=== PATIENT | female | born 1965 | race African-American/Black ===

== ENCOUNTER 2021-12-02 14:49 | Outpatient (REF) | payer SELFPAY ==
--- NOTE | 2021-12-03 09:39 | MHC.AU.HFU ---
Hearing Instrument Follow-Up- Binaural Date of Visit: 12/02/21 Right Ear: Child Care Sitter: Phonak Model: FastPayeo P70-R Serial Number: [id number] Repair Warranty: 02/06/2025 Loss and Damage Warranty: 02/06/2025 Battery Size: Rechargeable Type of Mold: cShell #[id number] Warranty 05/09/2022 Type of Wax Guard: CeruStop Left Ear: Child Care Sitter: Phonak Model: Audeo P70-R Serial Number: [id number] Repair Warranty: 02/06/2025 Loss and Damage Warranty: 02/06/2025 Battery Size: Rechargeable Type of Mold: cShell #[id number] Warranty 05/09/2022 Type of Wax Guard: CeruStop Follow-Up Summary: Patient reports that the left hearing aid has been producing feedback. Others at work have noticed the feedback as well. The left cShell is larger than the right side and sticks out more. A new impression was taken of the left ear and will be sent to [employer] along with the cShell. The left hearing aid will be kept in the repair drawer until the remade cShell has returned. Recommendations: Patient will be contacted when materials have arrived. Diagnosis Code(s): Primary Diagnosis: H90.6 Mixed Hearing Loss, Bilateral Signature: Provider: Odalis Lozano, [facility]
== END 2021-12-02 14:50 | disposition home or self-care (01) ==
LOC: HO.HAP 14:49
PROVIDERS: Visit Provider Internal Medicine
DX: Z13.89 Encounter for screening for other disorder (principal)

== ENCOUNTER 2021-12-23 14:46 | Outpatient (REF) | payer SELFPAY | END 2021-12-23 14:47 | disposition home or self-care (01) | LOC: HO.HAP 14:46 | PROVIDERS: Visit Provider Internal Medicine | DX: Z13.89 Encounter for screening for other disorder (principal) ==

== ENCOUNTER 2022-04-05 10:38 | Outpatient (REF) | payer SELFPAY | END 2022-04-05 10:39 | disposition home or self-care (01) | LOC: HO.HAP 10:38 | PROVIDERS: Visit Provider Internal Medicine | DX: Z13.89 Encounter for screening for other disorder (principal) ==

== ENCOUNTER 2022-04-15 08:54 | Outpatient (REF) | payer SELFPAY | END 2022-04-15 08:55 | disposition home or self-care (01) | LOC: HO.HAP 08:54 | PROVIDERS: Visit Provider Internal Medicine | DX: Z13.89 Encounter for screening for other disorder (principal) ==

== ENCOUNTER 2022-09-19 16:13 | Outpatient (REF) | payer SELFPAY | END 2022-09-19 16:14 | disposition home or self-care (01) | LOC: HO.HAP 16:13 | PROVIDERS: Visit Provider Internal Medicine | DX: Z13.89 Encounter for screening for other disorder (principal) ==

== ENCOUNTER 2022-10-14 15:25 | Outpatient (REF) | payer SELFPAY | END 2022-10-14 15:26 | disposition home or self-care (01) | LOC: HO.HAP 15:25 | PROVIDERS: Visit Provider Internal Medicine | DX: Z13.89 Encounter for screening for other disorder (principal) ==

== ENCOUNTER 2023-08-01 15:06 | Outpatient (REF) | payer SELFPAY ==
--- NOTE | 2023-08-01 16:40 | MHC.AU.HA3 ---
Hearing Instrument Follow-Up- Binaural Date of Visit: 08/01/23 Right Ear: Alfred, Model, Color, Serial Number: Marquez Olson P70-R, #[id number] It Corporate Recruiter Repair Warranty: 02/06/2025 It Corporate Rec[employer]iter Loss and Damage Warranty: 02/06/2025 [facility] Service Plan: Battery Size: Rechargeable Switchboard Operator Receptionist/Slim Tube: 0M Earmold/Dome/CShell/SlimTip:cShell #[id number] Warranty 05/09/2022 Type of Wax Guard: CeruStop Dispensed By: [facility] Date of Fittin11/18/2021 Left Ear: Alfred, Model, Color, Serial Number: Marquez Olson P70-R, #[id number] It Corporate Recruiter Repair Warranty: 02/06/2025 It Corporate Recruiter Loss and Damage Warranty: 02/06/2025 [facility] Service Plan: Battery Size: Rechargeable Switchboard Operator Receptionist/Slim Tube: 0P Earmold/Dome/CShell/SlimTip: cShell #[id number] Warranty 05/09/2022 Type of Wax Guard: CeruStop Dispensed By: [facility] Date of Fittin11/18/2021 Follow-Up Summary: Pt reports hearing aids have been disconnected from phone since her niece accidentally deleted the lloyd. Deleted BT pairings and reconnected aids to phone and lloyd. Firmware update completed as well. Cleaned and checked aids and molds, listening check positive. Recommendations: Recommendations: Hearing instrument follow-up or maintenance as needed. Diagnosis Code(s): Primary Diagnosis: H90.6 Mixed Hearing Loss, Bilateral Signature: Provider: Umair Dill, [facility]
== END 2023-08-01 15:07 | disposition home or self-care (01) ==
LOC: HO.HAP 15:06
PROVIDERS: Visit Provider Internal Medicine
DX: Z46.1 Encounter for fitting and adjustment of hearing aid (principal); H90.6 Mixed conductive and sensorineural hearing loss, bilateral
CPT/HCPCS: 92593

== ENCOUNTER 2023-11-01 15:54 | Outpatient (REF) | payer SELFPAY | END 2023-11-01 15:55 | disposition home or self-care (01) | LOC: HO.HAP 15:54 | PROVIDERS: PCP Internal Medicine; Visit Provider Internal Medicine | DX: Z46.1 Encounter for fitting and adjustment of hearing aid (principal); H90.3 Sensorineural hearing loss, bilateral | CPT/HCPCS: V5264; V5267 ==

== ENCOUNTER 2023-12-15 08:08 | Outpatient (REF) | payer SELFPAY | END 2023-12-15 08:09 | disposition home or self-care (01) | LOC: HO.HAP 08:08 | PROVIDERS: Visit Provider Internal Medicine | DX: Z13.89 Encounter for screening for other disorder (principal) ==

== ENCOUNTER 2023-12-29 08:01 | Outpatient (REF) | payer SELFPAY ==
--- NOTE | 2024-01-01 10:37 | MHC.AU.HA3 ---
Hearing Instrument Follow-Up- Binaural Date of Visit: 12/29/23 Right Ear: Make, Model, Color, Serial Number: Marquez Mondragono P70-R SN: [id number] Color: Black Continuous Pickling Line Pickler Repair Warranty: 02/06/2025 Continuous Pickling Line Pickler Loss and Damage Warranty: 02/06/2025 [facility] Service Plan: 11/18/2022 Battery Size: Rechargeable Veterinary Assistant Technician/Slim Tube: 0M Earmold/Dome/CShell/SlimTip:cShell SN: [id number] Shilpa: 05/09/2022 Type of Wax Guard: CeruStop Dispensed By: [facility] Date of Fittin11/18/2021 Left Ear: Make, Model, Color, Serial Number: Marquez Mondragono P70-R SN: [id number] Color: Black Continuous Pickling Line Pickler Repair Warranty: 02/06/2025 Continuous Pickling Line Pickler Loss and Damage Warranty: 02/06/2025 [facility] Service Plan: 11/18/2022 Battery Size: Rechargeable Veterinary Assistant Technician/Slim Tube: 0P Earmold/Dome/CShell/SlimTip: cShell SN: [id number] Shilpa: 04/16/2024 Old cShell (broken wax guard gasket) SN: [id number] Type of Wax Guard: CeruStop Dispensed By: [facility] Date of Fittin11/18/2021 Follow-Up Summary: Fit remade left c-shell. Size is no different than original new c-shell, despite note to make same size as old c-shell with SNs for reference. Sofiya frustrated as she relies on her for transportation to appointments and he needs to take time off work to do so. Old c-shell fits fully into canal while new c-shell and remake fit more like half shell. Kept old c-shell (SN: [id number]) and original new c-shell ([id number]) to send to [facility] to demonstrate differences in size. Sofiya currently using 1st remake (SN: [id number]). Since her Service Agreement through [facility] has , also provided contact information for [facility] if she wants to transfer care due to transportation issues. Recommendations: Patient will be contacted when materials have arrived. Diagnosis Code(s): Primary Diagnosis: H90.6 Mixed Hearing Loss, Bilateral Signature: Provider: Umair Phelps, [facility]
== END 2023-12-29 08:02 | disposition home or self-care (01) ==
LOC: HO.HAP 08:01
PROVIDERS: Visit Provider Internal Medicine
DX: Z13.89 Encounter for screening for other disorder (principal)

== ENCOUNTER 2024-01-25 08:09 | Outpatient (REF) | payer SELFPAY ==
--- NOTE | 2024-01-25 08:31 | MHC.AU.HA3 ---
Hearing Instrument Follow-Up- Binaural Date of Visit: 01/25/24 Right Ear: Make, Model, Color, Serial Number: Marquez Olson P70-R SN: [id number] Color: Black [employer] Plumber Repair Warranty: 02/06/2025 [employer] Plumber Loss and Damage Warranty: 02/06/2025 [facility] Service Plan: 11/18/2022 Battery Size: Rechargeable Coach/Slim Tube: 0M Earmold/Dome/CShell/SlimTip:cShell SN: [id number] Shilpa: 05/09/2022 Type of Wax Guard: CeruStop Dispensed By: [facility] Date of Fittin11/18/2021 Left Ear: Make, Model, Color, Serial Number: Marquez Olson P70-R SN: [id number] Color: Black [employer] Services Plumber Repair Warranty: 02/06/2025 [employer] Plumber Loss and Damage Warranty: 02/06/2025 [facility] Service Plan: 11/18/2022 Battery Size: Rechargeable Coach/Slim Tube: 0P Earmold/Dome/CShell/SlimTip: cShell SN: [id number] Shilpa: 03/06/2024 Old cShell (broken wax guard gasket) SN: [id number] Type of Wax Guard: CeruStop Dispensed By: [facility] Date of Fittin11/18/2021 Follow-Up Summary: , Bryson, brought Sofiya's hearing aids. Sofiya not present, reportedly in rehab. Replaced new left remade c-shell onto left hearing aid. Size of new c-shell (SN: [id number]) is now identical to old c-shell. Explained situation to Bryson and gave old c-shell (SN: [id number], broken wax guard system) and 1st remake of new c-shell (SN: [id number]) to keep as back up. Recommendations: Hearing instrument follow-up or maintenance as needed. Please contact our clinic with any questions or concerns. Diagnosis Code(s): Primary Diagnosis: H90.6 Mixed Hearing Loss, Bilateral Signature: Provider: Umair Phelps, [facility]
== END 2024-01-25 08:10 | disposition home or self-care (01) ==
LOC: HO.HAP 08:09
PROVIDERS: Visit Provider Internal Medicine
DX: Z13.89 Encounter for screening for other disorder (principal)

== ENCOUNTER 2025-05-12 11:04 | Outpatient (AMB) | payer BC, SELFPAY ==
--- OUTSIDE RECORDS SUMMARY | 2023-11-02 08:30 | XMS_ITS | Continuity of Care Document ---
Author Organization [facility] Address [address] [place] [id number] Phone Care Team Providers Care Paranormal Investigator Name Role Phone Royer CHENG, RVT, TALAT, Bulmaro Mcdermott U navailable Procedures Procedure Date Office/Outpt E&M Established 15 Mins- CT & [place] Duplex Scan-extrem Veins; Comp- CT & [place] Duplex Scan-extrem Veins; Uni/ 24 Endovenous Laser, 1st Vein Inj Scleros Solut; Mx Veins 1 4 Ultrason Guidan Needle Bx-rad 4 Endovenous Laser, 1st Vein Inj Scleros Solut; Mx Veins 1 4 Ultrason Guidan Needle Bx-rad 4 Duplex Scan-extrem Veins; Uni/ 24 Ultrason Guidan Needle Bx-rad 4 Inj Sclerosing Solution; Sngl 4 Duplex Scan-extrem Veins; Uni/ 24 Endovenous Laser, 1st Vein Inj Scleros Solut; Mx Veins 1 4 Ultrason Guidan Needle Bx-rad 4 Office/Outpt E&M Established 10 Mins Jul Duplex Scan-extrem Veins; Comp Offic Cons New/estab Mod 40 Mi 23 Advance Directives Directive Yes / No Effective Date File Name No Information Encounters Encounter Description Practice Location Reason(s) For Visit Diagnoses Date Provider Providers Copied on Encounter Office/Outpt E&M Established 15 Mins- CT & [place] Vivek [facility], [address] [place] [address] Dr [address] [address], [id number], tel:[phone] CVR - [place] [facility] [place] Chronic venous hypertension (idiopathic) with other complications of bilateral lower extremity 4 Royer CHENG RVT, TALAT Chamberlain. [address] [place] [address], [place], [place], [id number], [place]. tel:[phone] Referring Provider: Leno Dalton, [address] [place] [address], [address]. tel:[phone] [facility], [address] [place] [address] [place] [address] [address], [id number], [place] tel:[phone] CVR - [facility] Encounter for follow-up examination after completed treatment for conditions other than malignant neChronic venous hypertension (idiopathic) with other complications of bilateral lower extremity 4 Royer CHENG RVT, RPVI Robert. [address] [place] [address], [place], [place], [id number], [place]. tel:[phone] Referring Provider: Leno Dalton, [address] [place] [address], [address]. tel:[phone] [facility], [address] [place] [address] [facility] [address] [address], [id number], [place] tel:[phone] CVR - [facility] Encounter for follow-up examination after completed treatment for conditions other than malignant nePain in right leg 4 Royer CHENG RVT, RPVI Robert. [address] [place] [address], [place], [place], [id number], [place]. tel:[phone] Referring Provider: Leno Dalton, [address] [place] [address], [address]. tel:[phone] [facility], [address] [place] [address] Dr Avila [address], [id number], [place] tel:[phone] CVR [facility] Varicose veins of right lower extremity with other complications 4 Royer CHENG RVT, TALAT Chamberlain. [address] [place] [address], [place], [place], [id number], [place]. tel:[phone] Referring Provider: Leno Dalton, [address] [place] [address] Suite [facility], [place], [address]. tel:[phone] [place] [facility], [address] [place] [address] Dr Avila [address], [id number], [place] tel:[phone] CVR - [facility] Chronic venous hypertension (idiopathic) with inflammation of right lower extremity 4 Royer CHENG RVT, TALAT Chamberlain. [address] [place] [address], [place], [place], [id number], [place]. tel:[phone] Referring Provider: Leno Dalton, [address] [place] [address] [place] [address], [address]. tel:[phone] [facility], [address] [place] [address] Dr Avila [address], [id number], [place] tel:[phone] [facility] Encounter for follow-up examination after completed treatment for conditions other than malignant ne 4 Royer CHENG RVT, TALAT Chamberlain. [address] [place] [address], [place], [place], [id number], [place]. tel:[phone] Referring Provider: Leno Dalton, [address] [place] [address] [place] [address], [address]. tel:[phone] [facility], [address] [place] [address] Dr Avila [address], [id number], [place] tel:[phone] CVR - [facility] Chronic venous hypertension (idiopathic) with inflammation of left lower extremity 4 Lew Manriquez. [address] [place] [address], [place], [id number], [place]. tel:[phone] Referring Provider: Leno Dalton, [address] [place] [address], [address]. tel:[phone] [facility], [address] [place] [address] Dr Avila [address], [id number], [place] tel:[phone] CVR - [facility] Encounter for follow-up examination after completed treatment for conditions other than malignant nePain in left leg 4 Royer CHENG RVT, TALAT Chamberlain. [address] [place] [address], [place], [id number], [place]. tel:[phone] Referring Provider: Leno Dalton, [address] [place] [address], [address]. tel:[phone] [place] [facility], [address] [place] [address] [facility] [address], [id number], [place] tel:[phone] [facility] hypertension (idiopathic) with inflammation of left lower extremity 4 Royer CHENG RVT, TALAT Chamberlain. [address] [place] [address], [place], [id number], [place]. tel:[phone] Referring Provider: Leno Dalton, [address] [place] [address], [place], [address]. tel:[phone] Office/Outpt E&M Established 10 Mins [facility], [address] [place] [address] Dr Avila [address], [id number], [place] tel:[phone] CVR - [facility] Chronic venous hypertension (idiopathic) with other complications of bilateral lower extremityRest less legs syndromeLocal ized edemaEssentia l (primary) hypertension 4 Royer CHENG RVT, RPVI Robert. [address] [place] [address], [place], [id number], [place]. tel:[phone] Referring Provider: Leno Dalton, [facility] Suite [facility], [place], [address]. tel:[phone] [facility], [address] [place] [address] [address], [id number], tel:[phone] CVR - [facility] Chronic venous hypertension (idiopathic) with other complications of bilateral lower extremity 3 David CHENG FACS RVT RPMARY Garcias. [address] [place] [address], [place], [address], [place]. tel:[phone] Referring Provider: Leno Dalton, [address] [place] [address] Suite [facility], [place], [address]. tel:[phone] Offic Cons New/estab Mod 40 Mi [facility], [address] [place] [address] Dr [address], [place], [id number], [place] tel:[phone] CVR [facility] Chronic venous hypertension (idiopathic) with other complications of bilateral lower extremityScia janay, unspecified sidePain in left legLocalized edemaRestless legs syndromeEssen tial (primary) hypertensionV enous insufficiency (chronic) (peripheral) 3 Royer CEHNG, RVT, TALAT Chamberlain. [address] [place] [address], [place] [address], [place], [place], [id number], [place]. tel:[phone] Referring Provider: Leno Dalton, [address] [place] [address] Suite [facility], [place], [address]. tel:[phone] Family History Family Member Type Diagnosis Age At Onset No Information Payers Payer name Insurance type Covered alliance party ID [facility]() [facility] [id number] Social History Type Description Quantity Date Captured Comments Alcohol Use Details Unknown Caffeine Use Details Unknown Tobacco Use Status Current non-smoker Smoking Status Never Smoker Non-Smoking Tobacco Use Details : No Details Available : No Details Available Sex Female Vital Signs Date / Time: Height Weight BMI Pulse Rate Blood Pressure Temperature Respiratory Rate Body Surface Area Head Circumference Head Circ. Percentile Wt./Arya. Percentile BMI percentile Pulse Ox Inhaled Ox 75.300 kg (166.00 lbs) 31.3 8 kg/m eter (2) 100/70 mm[Hg] Chief Complaint And Reason For Visit No Information Reason For Referral Reason For Referral No Information Plan Of Treatment Date Type Action Status Goal Diet education completed Goal Diet education completed Referral Ordered: Weight management: Referral to physician timeframe: 3 Months (related to Body mass index (BMI) 31.0-31.9, adult) ordered Referral Ordered: Weight management: Referral to physician timeframe: 3 Months (related to Body mass index (BMI) 31.0-31.9, adult) ordered History Of Present Illness Encounter Date Complaint History Of Prese nt Illness No Information Functional Status Date Functional Assessmen t No Information Instructions Date Instruction Additional Infor zenaida Patient education booklet given Related to Chronic venous hypertension (idiopathic) with other complications of bilateral lower extremity Compression stocking usage as conservative measure Related to Chronic venous hypertension (idiopathic) with other complications of bilateral lower extremity Lifestyle education Related to B antonio mass index (BMI) 31.0-31.9, adult Giving Encouragement to exercise Related to Body mass index (BMI) 31.0-31.9, adult Diet education Related to Body mass index (BMI) 31.0-31.9, adult Pre and post instruc tions reviewed and provided Related to Chronic venous hypertension (idiopathic) with other complications of bilateral lower extremity Patient education booklet given Related to Chronic venous hypertension (idiopathic) with other complications of bilateral lower extremity Pre and post instruc tions reviewed and provided Related to Chronic venous hypertension (idiopathic) with other complications of bilateral lower extremity Patient education booklet given Related to Chronic venous hypertension (idiopathic) with other complications of bilateral lower extremity Lifestyle education Related to B antonio mass index (BMI) 31.0-31.9, adult Giving Encouragement to exercise Related to Body mass index (BMI) 31.0-31.9, adult Diet education Related to Body mass index (BMI) 31.0-31.9, adult Assessments Type Assessment Date No Information Patient Care Teams Name Effective Dates (start - stop) Status Members No Information
--- NOTE | 2025-05-12 11:09 | A.OFFVIS_ITS ---
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 According to referral notes, the goals for today's visit include neurology opinion on any opportunity to optimize her therapy. Sofiya tells me today that prior to her spinal cord injury which occurred in January of 2024, she has been experiencing falls. She had 2 falls leading up to her major fall and spinal cord injury and during this time she has been seen for low back pain. 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 She reports falling flat on her back. She denies any loss of consciousness though directly after the fall had inability to move her hands or feet. Since her fall and after working with physiatry PT/OT, she has been able to wiggle her toes and moves her legs minimal. She is able to move her upper extremities but has spasticity and contracture of her hands on both sides. Urination: Bladder spasms and frequent UTIs. Some retention at times in the past has needed catheterization. Bowels: Sometimes she does by herself but has intermittent constipation and requires an enema. Pain: Pain is minimal aside from pain/burning for which she is followed by urology. She does see at [facility] Medical History (Updated 05/12/25 @ 12:16 by Deborah Jose CNP) Injury of cervical spinal cord Review of Systems Const All systems reviewed & are unremarkable except as noted in HPI and below Neuro Denies Abnormal speech present Physical Exam Vital Signs: Last Vital Signs Pulse 74 05/12/25 11:17 Resp 16 05/12/25 11:17 BP 112/70 05/12/25 11:17 Pulse Ox 98 05/12/25 11:17 Oxygen Delivery Method Room Air 05/12/25 11:17 BMI result Body Mass Index 35.9 Const General: cooperative, comfortable and no acute distress Nutritional Appearance: well nourished Orientation/consciousness: patient oriented x3 HEENT Head: Yes normal to inspection and Yes normocephalic Eyes General: appearance normal, both eyes and all related structures Visual Cerda: normal visual cerda by confrontation Alignment and Position: alignment normal Periorbital: periorbital findings normal Eyelids: Yes eyelids normal Conjunctivae: conjunctivae normal Sclerae: sclerae normal Neck Neck: Yes normal visual inspection and Yes full ROM Neuro General: patient oriented x3 Cranial nerves: Yes CN's II-XII intact bilaterally Cognition (Neuro): normal cognition Speech: No Abnormal speech present Gait exam (Neuro): Other gait observations present (Spastic quadriparesis) Motor exam (neuro): Other motor observations present (Reduced strength to both her upper and lower extremities) Deep tendon reflexes (DTR's): Right triceps reflex intensity grade: 2+, Left triceps reflex intensity grade: 2+, Rt Biceps (C5, C6): 2+, Left biceps reflex intensity grade: 2+, Right brachioradialis reflex intensity grade: 2+, Left brachioradialis reflex intensity grade: 2+, Right patellar reflex intensity grade: 2+, Left patellar reflex intensity grade: 2+, Right ankle reflex intensity grade: 4+ (2 beats of clonus noted) and Left ankle reflex intensity grade: 2+ Psych Appearance: grossly normal Mental Status: mental status grossly normal Speech and movement: Normal speech and movement present and Clear speech present Affect: normal affect Attitude: cooperative Thought process: Normal thought process present Thought content: Normal thought content present Insight: Good insight present (Psych) Judgement: Good judgement present (Psych) Assessment & Plan Assessment & Plan (1) Injury of cervical spinal cord: Code(s): S14.109A - Unspecified injury at unspecified level of cervical spinal cord, initial encounter Category: Medical (2) Weakness: Code(s): R53.1 - Weakness Category: Medical (3) Loss of sensation: Code(s): R20.0 - Anesthesia of skin Category: Medical (4) Quadriparesis: Code(s): G82.50 - Quadriplegia, unspecified Category: Medical (5) Low back pain: Code(s): M54.50 - Low back pain, unspecified Category: Medical Plan Sofiya is a 59-year-old female patient with a past medical history h yperprolactinemia, lumbar radiculopathy, obesity, ADDISON, prediabetes, and 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 According to referral notes, the goals for today's visit include neurology opinion on any opportunity to optimize her therapy. Prevented that she does have an existing history of prediabetes and low back pain, it may be reasonable to evaluate for possibility of other underlying neuropathies or radiculopathies that may be contributing to her overall status. On exam, her patellar reflexes are slightly less brisk than what would have perhaps been expected with a spinal cord injury. She does however have right- sided ankle clonus. I had Dr. Ochoa joined me in today's visit to review the patient's history and exam. We are recommending an EMG of 1 of the lower extremities to rule out the possibility for an underlying neuropathy or radiculopathy that may be coexisting with her spinal cord injury. In terms of her spasticity, it appears that she is relatively well-controlled on oral baclofen and there was no obvious reason to escalate to an intrathecal formulation at this time. She should continue with PT/OT and it seems as though she has substantial help at home with the personal care at this time. -EMG LLE Orders: Orders NE electromyogram (EMG) Today G82.50 - Quadriplegia, unspecified, M54.50 - Low back pain, unspecified, R20.0 - Anesthesia of skin, R53.1 - Weakness, S14.109A - Unspecified injury at unspecified level of cervical spinal cord, initial encounter NE nerve conduction velocity Today G82.50 - Quadriplegia, unspecified, M54.50 - Low back pain, unspecified, R20.0 - Anesthesia of skin, R53.1 - Weakness, S14.109A - Unspecified injury at unspecified level of cervical spinal cord, initial encounter Coding Level of Care Code New Pt Level 4 (84736) Diagnoses Injury of cervical spinal cord S14.109A Weakness R53.1 Loss of sensation R20.0 Quadriparesis G82.50 Low back pain M54.50
[2025-05-12 11:17] VITALS: BP 112/70; PULSE 74; RESP 16; O2SAT 98; BMI 35.9
--- OUTSIDE RECORDS SUMMARY | 2025-05-12 13:24 | XMS_ITS | Encounter Summary ---
Author Organization 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 No 02/08/2024 Education Answer Date Recorded Are you interested in help w ith more adult education (for example, completing high school, GED, job training, learning the [place] language, technical skills, or developing parenting skills)? No 02/08/2024 Are you concerned about learning? Not on file 02/08/2024 No 02/08/2024 Yes 02/08/2024 Food Answer Date Recorded Within the past 6 months we worried whether our food would run out before we got money to buy more. Never True 05/07/2024 Within the past 6 months the food we bought just didn't last and we didn't have enough money to get more. Never True Residential Stability Answer Date Recor ded What is your housing situation today? I have humphrey sing 05/07/2024 How many times have you move d in the past 12 months? Zero (I did not move) 05/07/2024 Paying for Meds Answer Date Recorded Do you have trouble paying for medicines? No 05/07/2024 Paying Utility Bills Answer Date Record ed Do you have trouble paying your heating or elect ricity bill? No 05/07/2024 Transportation Answer Date Recorded Has the lack of transportati on kept you from medical appointments or from getting medications? No 05/07/2024 Digital Access Answer Date Recorded No 05/07/2024 Yes 05/07/2024 Do you have reliable internet access at home? Ye s 05/07/2024 Do you have a device (e.g., phone, tablet, computer) with a working camera? Yes 05/07/2024 Intimate Partner Violence Answer Date R ecorded Are you denied basic needs s uch as food, clothing, or medical care? No 02/08/2024 In the past 12 months have y ou been in a relationship with a person who hurts, threatens, or tries to control you? No 02/08/2024 Are you denied basic needs s uch as food, clothing, or medical care? No 02/08/2024 In the past 12 months have y ou been in a relationship with a person who hurts, threatens, or tries to control you? 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 It is not the complete legal health record.[facility]
--- OUTSIDE RECORDS SUMMARY | 2025-05-12 13:25 | XMS_ITS | Clinical Summary ---
Author Organization [facility] Address [address] [place] [address] Phone Care Team Providers Care Varnish Thinner Name Role Phone Leno Lambert MD Primary Care Provider [phone] Allergies No known active allergies Medications albuterol HFA (PROAIR HFA ; PROVENTIL HFA ; VENTOLIN HFA) 90 mcg/actuation inhaler Inhale 2 puffs by mouth every 4 (four) hours. Active acetaminophen (TYLENOL) 325 mg tablet Take 2 tablets (650 mg total) by mouth 3 (three) times a day. 01/18/20 24 Active amitriptyline (ELAVIL) 10 mg tablet Take 2 tablets (20 mg total) by mouth at bedtime. Active baclofen (LIORESAL) 20 mg tablet Take 1 tablet (20 mg total) by mouth 4 (four) times a day. 06/24/20 24 Active benzonatate (TESSALON) 100 mg capsule Take 1 capsule (100 mg total) by mouth 3 (three) times a day if needed. Active bisacodyL (DULCOLAX) 10 mg suppository Insert 1 applicator rectally every 24 hours as needed for constipation 01/18/20 Active capsaicin (ZOSTRIX) 0.025 % cream Apply topically 3 times daily. 06/24/20 24 Active diclofenac (VOLTAREN) 1 % topical gel Apply 4 g topically 4 times daily. 06/24/20 24 Active docusate sodium (COLACE) 100 mg capsule TAKE 1 CAPSULE BY MOUTH EVERY DAY FOR STOOL SOFTENER Active furosemide (LASIX) 20 mg tablet Take 1 tablet (20 mg total) by mouth 1 (one) time each day. 02/25/20 Active lidocaine 4 % patch Apply to Lower back topically one time a day for Pain Management Apply for 12 Hours in a 24 Hour period. Max dose = 3 patches. External use only. 06/24/20 Active lisinopriL (PRINIVIL,ZESTRIL) 10 mg tablet Take 1 tablet (10 mg total) by mouth 1 (one) time each day if needed. 04/28/20 Active melatonin 10 mg tablet Take 1 tablet (10 mg total) by mouth daily. 06/24/20 Active midodrine (PROAMATINE) 5 mg tablet Take 1 tablet (5 mg total) by mouth 2 (two) times a day. 06/25/20 Active mirabegron (MYRBETRIQ) 50 mg 24 hr tablet Give 1 tablet by mouth one time a day for urinary spasm 06/25/20 Active ondansetron ODT (ZOFRAN-ODT) 4 mg disintegrating tablet Take 1 tablet (4 mg total) by mouth every 8 hours as needed. 06/24/20 Active multivitamin tablet Take 1 tablet by mouth 1 (one) time each day with dinner. 06/24/20 Active oxyCODONE (ROXICODONE) 5 mg immediate release tablet TAKE 1/2 TABLETS EVERY 4 HOURS BY ORAL ROUTE NEEDED FOR 30 DAYS. 11/08/19 Active pantoprazole (PROTONIX) 40 mg EC tablet Take 1 tablet (40 mg total) by mouth 1 (one) time each day before breakfast. 06/25/20 Active senna (SENOKOT) 8.6 mg tablet Give 1 tablet by mouth every 24 hours as needed for Constipation 06/25/20 Active tetrahydrozoline 0.05 % ophthalmic solution Instill 1 drop in both eyes three times a day for eye irritation 06/24/20 Active tiZANidine (ZANAFLEX) 4 mg tablet TAKE 1.5 TABLET BY MOUTH 3 TIMES A DAY Active traZODone (DESYREL) 50 mg tablet Take 1 tablet (50 mg total) by mouth at bedtime. 06/24/20 Active Gavilax 17 gram/dose oral powder take 17 grams by mouth once every day 04/13/20 Active diazePAM (Valium) 5 mg tablet Take 1 tablet (5 mg total) by mouth. 06/24/20 24 Active polyethylene glycol (PEG) 17 gram/dose oral powder Take 17 g by mouth 1 (one) time each day. 510 g 03/18/20 025 Active Problems No known active problems Encounters Date Type Department Care Team Description 04/26/2025 2:46 PM EDT - 04/26/2025 7:08 PM EDT [facility] [address] [place] [phone] Cyrus Almonte MD Interstitial cystitis (Primary Dx) Discharge Disposition: Home or Self Care 04/01/2025 Telephone Gastroenterology - [address] [phone] Richardson Ruvalcaba MD 03/18/2025 11:16 AM EDT - 03/18/2025 6:34 PM EDT [facility] Emergency [address] [place] [phone] Mac Guzman MD Constipation, unspecified constipation type (Primary Dx); Cystitis Discharge Disposition: Home or Self Care 03/12/2025 9:48 AM EDT - 03/12/2025 4:58 PM EDT [facility] [address] [place] [phone] Zach Matos MD Generalized weakness (Primary Dx); Dehydration Discharge Disposition: Home or Self Care 02/27/2025 10:24 PM EDT - 02/28/2025 3:56 AM EDT [facility] [address] [place] [phone] Clyde Diaz MD Leg heaviness (Primary Dx); Urinary tract infection in female Discharge Disposition: Home or Self Care from Last 3 Months Medical History Medical History Date Comments Hypertension PCOS (polycystic ovarian syndrome) Paraplegia (CMS/[facility] V24, [facility] V28) Social History Tobacco Use Types Packs/Day Years Used Date Smoking Tobacco: Never Smokeless Tobacco: Never Tobacco Cessation:Counseling Given: Not Answered Alcohol Use Standard Drinks/Week Comments Never 0 (1 standard drink = 0.6 oz pur e alcohol) Comments Unknown Sex and Gender Information Value Date Recorded Sex Assigned at Female 01/17/2025 11:17 PM EDT Legal Sex Female 8:00 PM EST Gender Identity Female 01/17/2025 11:17 PM EDT Sexual Orientation Straight 01/17/2025 11 :17 PM EDT Obstetrics History Last Filed Vital Signs Vital Sign Reading Time Taken Comments Blood Pressure 138/80 04/26/2025 3:03 PM EDT Pulse 76 04/26/2025 3:03 PM EDT Temperature 36.8 C (98.2 F) 04/26/2025 3:03 PM EDT Respiratory Rate 18 04/26/2025 3:03 PM EDT Oxygen Saturation 100% 04/26/2025 3:03 PM EDT Inhaled Oxygen Concentration - - Weight 83.9 kg (185 lb) 03/18/2025 11:22 AM EDT Height 154.9 cm (5' 1 ) 03/18/2025 11:22 AM EDT Body Mass Index 34.96 03/18/2025 11:22 AM EDT Plan of Treatment Health Maintenance Due Date Last Done Comments Colorectal Cancer Screening: Colonoscopy 1964 Cervical Cancer Screening: Pap Smear 1985 Pneumococcal Vaccine: 50+ Years (1 of 1 - PCV) 2014 Hepatitis B Vaccines (2 of 3 - 19+ 3-dose series) 02/24/2020 01/27/2020 Cholesterol Screening (Lipid Panel) 04/26/2024 HIV Screening 04/26/2024 Hepatitis C Screening 04/26/2024 Social Influencers of Health Screening 04/26/2024 Depression Screening 07/03/2024 COVID-19 Vaccine (3 - 2024- season) 2025 10/17/2020, 09/26/2020 Influenza Vaccine (#1) 2025 , 04/22/2022, 04/10/2021, Additional history exists Breast Cancer Screening 12/26/2025 12/27/2023 Hypertension/CHF/CAD Annual BMP Blood Test 03/18/2026 03/18/2025, 03/12/2025, 02/27/2025, Additional history exists DTaP,Tdap,and Td Vaccines (4 - Td or Tdap) 03/13/2028 03/13/2018, 05/23/2013, 02/26/2008 RSV Immunization Adult Patients (1 - 1-dose 75+ series) 09/20/2039 MMR Vaccines Aged Out 02/03/2020 No longer eligi ble based on patient's age to complete this topic Zoster Vaccines Completed 08/14/2020, 05/11/2020 HIB Vaccines Aged Out No longer eligi ble based on patient's age to complete this topic HPV Vaccines Aged Out No longer eligi ble based on patient's age to complete this topic Hepatitis A Vaccines Aged Out No long er eligible based on patient's age to complete this topic IPV Vaccines Aged Out No longer eligi ble based on patient's age to complete this topic Meningococcal ACWY Vaccine Aged Out N o longer eligible based on patient's age to complete this topic Meningococcal B Vaccine Aged Out No l onger eligible based on patient's age to complete this topic RSV Immunization Patients Under 20 months Aged Out No longer eligible based on patient's age to complete this topic Varicella Vaccines Aged Out No longer eligible based on patient's age to complete this topic Procedures Procedure Name Priority Date/Time Associated Diagnosis Comments URINALYSIS WITH REFLEX MICROSCOPIC STAT 04/26/2025 5:18 PM EDT URINALYSIS WITH REFLEX MICROSCOPIC STAT 04/26/2025 5:18 PM EDT CULTURE URINE STAT 04/26/2025 5:[address] ABDOMEN PELVIS W CONTRAST STAT 03/18/2025 3:08 PM EDT URINALYSIS WITH REFLEX MICROSCOPIC STAT 03/18/2025 2:40 PM EDT URINALYSIS WITH REFLEX MICROSCOPIC STAT 03/18/2025 2:40 PM EDT [place] URINE CULTURE TUBE Routine 03/18/2025 2:38 PM EDT EXTRA TUBES Routine 03/18/2025 2:38 PM EDT CBC WITH AUTO DIFFERENTIAL STAT 03/18/2025 1:37 PM EDT MAGNESIUM STAT 03/18/2025 1:37 PM EDT COMPREHENSIVE METABOLIC PANEL STAT 03/18/2025 1:37 PM EDT CBC AND DIFFERENTIAL STAT 03/18/2025 1:37 PM EDT ECG ANNOTATED 03/13/2025 [place] URINE CULTURE TUBE STAT 03/12/2025 12:52 PM EDT URINALYSIS WITH REFLEX MICROSCOPIC AND CULTURE STAT 03/12/2025 12:52 PM EDT URINALYSIS WITH REFLEX MICROSCOPIC AND CULTURE STAT 03/12/2025 12:52 PM EDT CBC WITH AUTO DIFFERENTIAL STAT 03/12/2025 10:34 AM EDT CBC AND DIFFERENTIAL STAT 03/12/2025 10:34 AM EDT LIPASE STAT 03/12/2025 10:34 AM EDT COMPREHENSIVE METABOLIC PANEL STAT 03/12/2025 10:34 AM EDT ECG 12-LEAD STAT 03/12/2025 10:14 AM EDT CULTURE URINE STAT 02/28/2025 3:13 AM EDT LACTATE, WITH REFLEX STAT 02/28/2025 1:35 AM EDT URINALYSIS WITH REFLEX MICROSCOPIC STAT 02/28/2025 1:00 AM EDT URINALYSIS WITH REFLEX MICROSCOPIC STAT 02/28/2025 1:00 AM EDT [id number], RSV, FLU A AND B QUALITATIVE RT-PCR, INTERNAL LAB STAT 02/28/2025 12:44 AM EDT VAS US DUPLEX LOWER EXT VENOUS BILAT STAT 02/28/2025 12:21 AM EDT Leg heaviness CBC WITH AUTO DIFFERENTIAL STAT 02/27/2025 11:31 PM EDT CREATINE KINASE STAT 02/27/2025 11:31 PM EDT COMPREHENSIVE METABOLIC PANEL STAT 02/27/2025 11:31 PM EDT MAGNESIUM STAT 02/27/2025 11:31 PM EDT CBC AND DIFFERENTIAL STAT 02/27/2025 11:31 PM EDT from Last 3 Months Results * Urinalysis with reflex microscopic (04/26/2025 5:18 PM EDT) Only the most recent of3 resultswithin the time period is included. Specific [place] Urine 1.012 1.003 - 1.030 LAB URINALYSIS - AUTOMATED METHOD 04/26/2025 5:48 PM [facility] pH, Urine 7.0 5.0 - 8.0 pH LAB URINALYSIS - AUTOMATED METHOD 04/26/2025 5:48 PM [facility] Leukocytes, Urine Negative Negative LAB URINALYSIS - AUTOMATED METHOD 04/26/2025 5:48 PM [facility] Nitrite, Urine Negative Negative LAB URINALYSIS - AUTOMATED METHOD 04/26/2025 5:48 PM [facility] Protein, Urine Negative <=Trace mg/dL LAB URINALYSIS - AUTOMATED METHOD 04/26/2025 5:48 PM [facility] Glucose, Urine Negative Negative mg/dL LAB URINALYSIS - AUTOMATED METHOD 04/26/2025 5:48 PM [facility] Ketones, Urine Negative Negative mg/dL LAB URINALYSIS - AUTOMATED METHOD 04/26/2025 5:48 PM [facility] Urobilinogen, Urine 0.2 0.2 - 1.0 mg/dL LAB URINALYSIS - AUTOMATED METHOD 04/26/2025 5:[address] [facility] Bilirubin, Urine Negative Negative LAB URINALYSIS - AUTOMATED METHOD 04/26/2025 5:[address] [facility] Blood, Urine Negative Negative LAB URINALYSIS - AUTOMATED METHOD 04/26/2025 5:[address] [facility] Urine Urine specimen obtained by clean catch procedure / Unknown Non-blood Collection / Unknown 04/26/2025 5:18 PM EDT 04/26/2025 5:31 PM EDT us Cyrus Almonte MD LAB URINE ORDERABLES Final Resul t Performing Organization Address City/[facility]/ZIP Co de Phone Number [facility] [address] [place] [address], [place] [phone] * Urine culture (04/26/2025 5:18 PM EDT) Only the most recent of2 resultswithin the time period is included. Culture, Urine No growth 04/27/2025 10:[address] [facility] Urine Urethral structure / Unknown Non-blood Collection / Unknown 04/26/2025 5:18 PM EDT 04/26/2025 5:31 PM EDT us Cyrus Almonte MD LAB MICROBIOLOGY - GENERAL ORDER SABINE Final Result Performing Organization Address [facility]/ZIP Co de Phone Number [facility] [address] [place] [address], [place] [phone] * CT Abdomen Pelvis w Contrast (03/18/2025 3:08 PM EDT) Anatomical Region Laterality Modality Body Computed Tomogra phy 03/18/2025 3:45 PM EDT Impressions 03/18/2025 3:55 PM EDT No bowel obstruction. Large stool throughout the colon. Correlate for constipation. Diffuse bladder wall thickening suspicious for cystitis. -------- FINAL REPORT -------- Dictated By: RICK BARFIELD Dictated Date: 03/18/2025 15:45 ET Assigned Physician: RICK BARFIELD Reviewed and Electronically Signed By: RIKC BARFIELD Signed Date: 03/18/2025 15:55 ET Workstation ID: [id number] Transcribed By: Self Edit Transcribed Date: 03/18/2025 15:46 ET Narrative 03/18/2025 3:55 PM EDT PROCEDURE: CT ABDOMEN/PELVIS INDICATION: Pain TECHNIQUE: CT of the abdomen and pelvis following the intravenous administration of 90cc Isovue 370. Multiplanar reformats. The examination was performed utilizing dose reduction techniques. Total DLP 1712 COMPARISON: No priors available. FINDINGS: LOWER THORAX: Lung bases are clear. HEPATOBILIARY: Hepatic steatosis with hepatomegaly. No focal liver lesions. Gallbladder and biliary tree are within normal limits. SPLEEN: No splenomegaly. PANCREAS: No focal mass or ductal dilatation. ADRENALS: No nodules. KIDNEYS/URETERS: No hydronephrosis, stones, or solid mass. PELVIC ORGANS/BLADDER: Diffuse bladder wall thickening. Adnexal structures are normal. Fibroid uterus. PERITONEUM / RETROPERITONEUM: No ascites or free air. No retroperitoneal lymphadenopathy. VESSELS: Abdominal aorta is normal in size. Portal vein is patent. GI TRACT: Large stool throughout the colon. Normal appendix. No bowel obstruction or wall thickening. BONES AND SOFT TISSUES: Small fat-containing periumbilical hernia. Degenerative changes seen throughout the bones. Procedure Note Rick Barfield MD - 03/18/2025 PROCEDURE: CT ABDOMEN/PELVIS INDICATION: Pain TECHNIQUE: CT of the abdomen and pelvis following the intravenousadministration of 90cc Isovue 370. Multiplanar reformats. The examinationwas performed utilizing dose reduction techniques. Total DLP 1712 COMPARISON: No priors available. FINDINGS: LOWER THORAX: Lung bases are clear. HEPATOBILIARY: Hepatic steatosis with hepatomegaly. No focal liverlesions. Gallbladder and biliary tree are within normal limits. SPLEEN: No splenomegaly. PANCREAS: No focal mass or ductal dilatation. ADRENALS: No nodules. KIDNEYS/URETERS: No hydronephrosis, stones, or solid mass. PELVIC ORGANS/BLADDER: Diffuse bladder wall thickening. Adnexalstructures are normal. Fibroid uterus. PERITONEUM / RETROPERITONEUM: No ascites or free air. No retroperitoneallymphadenopathy. VESSELS: Abdominal aorta is normal in size. Portal vein is patent. GI TRACT: Large stool throughout the colon. Normal appendix. No bowelobstruction or wall thickening. BONES AND SOFT TISSUES: Small fat-containing periumbilical hernia.Degenerative changes seen throughout the bones. IMPRESSION: No bowel obstruction. Large stool throughout the colon. Correlate for constipation. Diffuse bladder wall thickening suspicious for cystitis. -------- FINAL REPORT -------- Dictated By: RICK BARFIELD Dictated Date: 03/18/2025 15:45 ET Assigned Physician: RICK BARFIELD Reviewed and Electronically Signed By: RICK BARFIELD Signed Date: 03/18/2025 15:55 ET Workstation ID: [id number] Transcribed By: Self Edit Transcribed Date: 03/18/2025 15:46 ET Mac Guzman MD IMG CT PROCEDURES Final Result * [place] urine culture tube (03/18/2025 2:38 PM EDT) Only the most recent of2 resultswithin the time period is included. [facility] Extra Tube Hold for add-ons. 03/18/2025 5:[address] [facility] Comment:Auto resulted. Urine Urine specimen obtained by clean catch procedure / Unknown Non-blood Collection / Unknown 03/18/2025 2:38 PM EDT 03/18/2025 3:31 PM EDT Mac Guzman MD LAB URINE ORDERABLES Final Resul t [facility] [address] [place] [address], * (ABNORMAL) CBC auto differential (03/18/2025 1:37 PM EDT) Only the most recent of3 resultswithin the time period is included. Pathologist [facility] [place] WBC 7.5 4.8 - 10.8 K/mcL LAB HEMETOLOGY METHOD 03/18/2025 1:[address] [facility] RBC 3.90 3.80 - 4.80 M/mcL LAB HEMETOLOGY METHOD 03/18[facility]25 [facility] Hemoglobin 11.7 11.5 - 16.0 g/dL LAB HEMETOLOGY METHOD 03/18/2025 1:59 [facility] Hematocrit 35.9 35.0 - 47.0 % LAB HEMETOLOGY METHOD 03/18/2025 1:59 PM [facility] MCV 91.8 79.0 - 98.0 FL LAB HEMETOLOGY METHOD 03/18/2025 1:59 PM [facility] MCH 29.9 27.0 - 32.0 pcg LAB HEMETOLOGY METHOD 03/18/2025 1:59 PM [facility] MCHC 32.6 32.0 - 37.0 g/dL LAB HEMETOLOGY METHOD 03/18/2025 1:59 PM [facility] RDW 15.2(H) 11.0 - 15.0 % LAB HEMETOLOGY METHOD 03/18/2025 1:59 PM [facility] Platelets 294 130 - 400 K/mcL LAB HEMETOLOGY METHOD 03/18/2025 1:59 PM [facility] MPV 9.5 7.0 - 11.0 FL LAB HEMETOLOGY METHOD 03/18/2025 1:59 PM [facility] NRBC 0.0 <1.0 % LAB HEMETOLOGY METHOD 03/18/2025 1:59 PM [facility] NRBC Absolute 0.00 <0.10 K/mcL LAB HEMETOLOGY METHOD 03/18/2025 1:59 PM [facility] Neutrophils Relative 52.2 % LAB HEMETOLOGY METHOD 03/18/2025 1:[address] [facility] Lymphocytes Relative 37.8 % LAB HEMETOLOGY METHOD 03/18/2025 1:59 PM [facility] Monocytes Relative 8.2 % LAB HEMETOLOGY METHOD 03/18/2025 1:59 PM [facility] Eosinophils Relative 1.2 % LAB HEMETOLOGY METHOD 03/18/2025 1:59 PM [facility] Basophils Relative 0.3 % LAB HEMETOLOGY METHOD 03/18/2025 1:59 PM [facility] Immature Granulocytes Relative 0.3 % LAB HEMETOLOGY METHOD 03/18/2025 1:59 PM [facility] Neutrophils Absolute 3.94 1.50 - 7.00 K/mcL LAB HEMETOLOGY METHOD 03/18/2025 1:59 PM [facility] Lymphocytes Absolute 2.85 1.00 - 5.00 K/mcL LAB HEMETOLOGY METHOD 03/18/2025 1:59 PM [facility] Monocytes Absolute 0.62 0.20 - 1.00 K/mcL LAB HEMETOLOGY METHOD 03/18/2025 1:59 PM [facility] Eosinophils Absolute 0.09 0.00 - 0.50 K/mcL LAB HEMETOLOGY METHOD 03/18/2025 1:59 PM [facility] Basophils Absolute 0.02 0.00 - 0.20 K/mcL LAB HEMETOLOGY METHOD 03/18/2025 1:59 PM [facility] Immature Granulocytes Absolute 0.02 0.00 - 0.03 K/mcL LAB HEMETOLOGY METHOD 03/18/2025 1:59 PM [facility] Blood Venous blood specimen / Unknown Venipuncture / Unknown 03/18/2025 1:37 PM EDT 03/18/2025 1:49 PM EDT us Mac Guzman MD LAB BLOOD ORDERABLES Final Resul t Performing Organization Address [facility]/ZIP Co de Phone Number [facility] [address] [place] [address], [place] [phone] * Magnesium (03/18/2025 1:37 PM EDT) Only the most recent of2 resultswithin the time period is included. Pathologist [facility] [place] Magnesium 2.1 1.9 - 2.6 mg/dL LAB CHEMISTRY METHOD 03/18/2025 2:[address] [facility] Blood Venous blood specimen / Unknown Venipuncture / Unknown 03/18/2025 1:37 PM EDT 03/18/2025 1:49 PM EDT us Mac Guzman MD LAB BLOOD ORDERABLES Final Resul t Performing Organization Address [facility] de Phone Number [facility] [address] [place] [address], [place] [phone] * (ABNORMAL) Comprehensive metabolic panel (03/18/2025 1:37 PM EDT) Only the most recent of3 resultswithin the time period is included. Sodium 139 133 - 145 mmol/L LAB CHEMISTRY METHOD 03/18/2025 2:[address] [facility] Potassium 4.2 3.5 - 5.5 mmol/L LAB CHEMISTRY METHOD 03/18/2025 2:[address] [facility] Chloride 105 96 - 110 mmol/L LAB CHEMISTRY METHOD 03/18/2025 2:[address] [facility] CO2 31 21 - 32 mmol/L LAB CHEMISTRY METHOD 03/18/2025 2:[address] [facility] Anion Gap 3 3 - 11 LAB CHEMISTRY METHOD 03/18/2025 2:[facility] Glucose 76 70 - 100 mg/dL LAB CHEMISTRY METHOD 03/18/2025 2:26 PM [facility] BUN 15 5 - 25 mg/dL LAB CHEMISTRY METHOD 03/18/2025 2:26 PM [facility] Creatinine 0.68 0.50 - 1.10 mg/dL LAB CHEMISTRY METHOD 03/18/2025 2:26 PM [facility] eGFR 100 >=60 mL/min/1. 73m2 LAB CHEMISTRY METHOD 03/18/2025 2:26 PM [facility] Comment:Calculation based on the Chronic Kidney Disease Epidemiology Collaboration (CKD-EPI) equation refit without adjustment for race. BUN/Creatinine Ratio 22.1 LAB CHEMISTRY METHOD 03/18/2025 2:26 PM [facility] Calcium 9.1 8.5 - 10.5 mg/dL LAB CHEMISTRY METHOD 03/18/2025 2:26 PM [facility] AST (SGOT) 29 10 - 42 unit/L LAB CHEMISTRY METHOD 03/18/2025 2:26 PM [facility] ALT (SGPT) 38 10 - 60 unit/L LAB CHEMISTRY METHOD 03/18/2025 2:26 PM [facility] Alkaline Phosphatase 78 42 - 121 unit/L LAB CHEMISTRY METHOD 03/18/2025 2:26 PM [facility] Total Protein 6.8 6.0 - 8.0 g/dL LAB CHEMISTRY METHOD 03/18/2025 2:26 PM [facility] Albumin 3.0(L) 3.2 - 5.0 g/dL LAB CHEMISTRY METHOD 03/18/2025 2:26 PM [facility] Total Bilirubin 0.2 0.0 - 1.4 mg/dL LAB CHEMISTRY METHOD 03/18/2025 2:26 PM [facility] Blood Venous blood specimen / Unknown Venipuncture / Unknown 03/18/2025 1:37 PM EDT 03/18/2025 1:49 PM EDT Mac Guzman MD LAB BLOOD ORDERABLES Final Resul t [facility] [address] [place] [address], [place] [phone] * ECG-Annotated (03/13/2025) Provider Onbase ECG ORDERABLES Final Result * (ABNORMAL) Urinalysis with reflex microscopic and culture (03/12/2025 12:52 PM EDT) Specific [place] Urine 1.005 1.003 - 1.030 LAB URINALYSIS - AUTOMATED METHOD 03/12/2025 1:[address] [facility] pH, Urine 8.5(A) 5.0 - 8.0 pH LAB URINALYSIS - AUTOMATED METHOD 03/12/2025 1:[address] [facility] Leukocytes, Urine Negative Negative LAB URINALYSIS - AUTOMATED METHOD 03/12/2025 1:[address] [facility] Nitrite, Urine Negative Negative LAB URINALYSIS - AUTOMATED METHOD 03/12/2025 1:[address] [facility] Protein, Urine Negative <=Trace mg/dL LAB URINALYSIS - AUTOMATED METHOD 03/12/2025 1:[address] [facility] Glucose, Urine Negative Negative mg/dL LAB URINALYSIS - AUTOMATED METHOD 03/12/2025 1:[address] [facility] Ketones, Urine Negative Negative mg/dL LAB URINALYSIS - AUTOMATED METHOD 03/12/2025 1:[address] [facility] Urobilinogen, Urine 0.2 0.2 - 1.0 mg/dL LAB URINALYSIS - AUTOMATED METHOD 03/12/2025 1:[address] [facility] Bilirubin, Urine Negative Negative LAB URINALYSIS - AUTOMATED METHOD 03/12/2025 1:[address] [facility] Blood, Urine Negative Negative LAB URINALYSIS - AUTOMATED METHOD 03/12/2025 1:[address] [facility] Urine Urinary bladder structure / Unknown Non-blood Collection / Unknown 03/12/2025 12:52 PM EDT 03/12/2025 1:40 PM EDT us Zach Matos MD LAB URINE ORDERABLES Final R esult Performing Organization Address City/[facility]/ZIP Co de Phone Number [facility] [address] [place] [address], [place] [phone] * Lipase (03/12/2025 10:34 AM EDT) Pathologist [facility] [place] Lipase 53 13 - 75 unit/L LAB CHEMISTRY METHOD 03/12/2025 11:[address] [facility] Blood Venous blood specimen / Unknown Venipuncture / Unknown 03/12/2025 10:34 AM EDT 03/12/2025 11:06 AM EDT us Zach Matos MD LAB BLOOD ORDERABLES Final R esult Performing Organization Address City/[facility]/ZIP Co de Phone Number [facility] [address] [place] [address], [place] [phone] * ECG 12 lead (03/12/2025 10:14 AM EDT) Ventricular Rate ECG 50 BPM GEMUSE Atrial Rate 50 BPM GEMUSE P-R Interval 194 ms GEMUSE QRS Duration 74 ms GEMUSE Q-T Interval 444 ms GEMUSE QTc 404 ms GEMUSE P Wave [place] 74 degrees GEMUSE R [place] 16 degrees GEMUSE T [place] 34 degrees GEMUSE ECG Interpretation Sinus bradycardia Septal infarct (cited on or before 12-MAR-2025) When compared with ECG of 13-JAN-2025 14:43, Vent. rate has decreased BY 27 BPM Confirmed by KARL FERNANDEZ ([id number]) on 03/12/2025 7:59:02 PM GEMUSE 03/12/2025 10:1 4 AM EDT 03/12/2025 7:59 PM EDT Zach Matos MD ECG ORDERABLES Final Result GEMUSE * Lactate, with Reflex (02/28/2025 1:35 AM EDT) Pathologist [facility] [place] LACTIC ACID 0.9 0.4 - 2.0 mmol/L LAB CHEMISTRY METHOD 02/28/2025 2:[address] [facility] Blood Venous blood specimen / Unknown Venipuncture / Unknown 02/28/2025 1:35 AM EDT 02/28/2025 1:49 AM EDT Clyde Diaz MD LAB BLOOD ORDERABLES Final R esult [facility] [address] [place] [address], * [id number], RSV, Influenza A and B qualitative RT-PCR (02/28/2025 12:44 AM EDT) Pathologist [facility] [place] Influenza A PCR Not Detected Not Detected LAB MICROBIOLOGY METHOD 02/28/2025 2:[address] [facility] Influenza B PCR Not Detected Not Detected LAB MICROBIOLOGY METHOD 02/28/2025 2:[address] [facility] RSV PCR Not Detected Not Detected LAB MICROBIOLOGY METHOD 02/28/2025 2:[address] [facility] SARS COV-2 Not Detected Not Detected LAB MICROBIOLOGY METHOD 02/28/2025 2:[address] [facility] Swab Both anterior nares / Unknown Non-blood Collection / Unknown 02/28/2025 12:44 AM EDT 02/28/2025 1:16 AM EDT Narrative [facility] - 02/28/2025 2:02 AM EDT Disclaimer: Testing was performed using the [employer] GeneXpert Xpress SARS-CoV-2 _Flu_RSV PLUS PCR assay. The manner in which this information is used to guide patient care is the responsibility of the healthcare provider. Results should be correlated with the clinical history, epidemiological data, and other data available to the clinician evaluating the patient. Negative results do not preclude infection. This test has been authorized by the FDA under an Emergency Use Authorization (EUA). This test is only authorized for the duration of time the declaration that circumstances exist justifying the authorization of the emergency use of in vitro diagnostic tests for detection of SARS-CoV-2 virus and/or diagnosis of COVID-19 infection under section 564 (b) (1) of the Act, 21 U.S.C 360bbb-3 (b) (1), unless the authorization is terminated or revoked sooner. Reference Range: Not Detected Fact sheet for Healthcare providers can be found at https://www.fda.gov/media/026566/download. Fact sheet for Healthcare patients can be found at https://www.fda.gov/media/085216/download. us Clyde Diaz MD LAB MICROBIOLOGY - GENERAL O RDERABLES Final Result [facility] [address] [place] [address], * Vascular US Duplex Lower Extremity Venous Bilateral (02/28/2025 12:21 AM EDT) Anatomical Region Laterality Modality Vascular, Abdomen Ultrasound 02/28/2025 12:2 3 AM EDT Impressions 02/28/2025 12:24 AM EDT NO RIGHT OR LEFT LOWER EXTREMITY DEEP VENOUS THROMBOSIS. -------- FINAL REPORT -------- Dictated By: Cheng Márquez Dictated Date: 02/28/2025 00:23 ET Assigned Physician: Cheng Márquez Reviewed and Electronically Signed By: Cheng Márquez Signed Date: 02/28/2025 00:24 ET Workstation ID: [id number] Transcribed By: Self Edit Transcribed Date: 02/28/2025 00:23 ET Narrative 02/28/2025 12:24 AM EDT PROCEDURE: VAS US DUPLEX LOWER EXT VENOUS BILAT INDICATION: thigh heaviness b/l TECHNIQUE: 2-D and color Doppler imaging of the lower extremity venous vasculature with compression and augmentation maneuvers. COMPARISON: No priors available. FINDINGS: RIGHT: There is normal flow, compression, and augmentation from the common femoral through the popliteal vein. Visualized calf veins unremarkable. LEFT: There is normal flow, compression, and augmentation from the common femoral through the popliteal vein. Visualized calf veins unremarkable. Procedure Note Cheng Márquez MD - 02/28/2025 PROCEDURE: VAS US DUPLEX LOWER EXT VENOUS BILAT INDICATION: thigh heaviness b/l TECHNIQUE: 2-D and color Doppler imaging of the lower extremity venousvasculature with compression and augmentation maneuvers. COMPARISON: No priors available. FINDINGS: RIGHT: There is normal flow, compression, and augmentation from the commonfemoral through the popliteal vein. Visualized calf veins unremarkable. LEFT: There is normal flow, compression, and augmentation from the commonfemoral through the popliteal vein. Visualized calf veins unremarkable. IMPRESSION: NO RIGHT OR LEFT LOWER EXTREMITY DEEP VENOUS THROMBOSIS. -------- FINAL REPORT -------- Dictated By: Cheng Márquez Dictated Date: 02/28/2025 00:23 ET Assigned Physician: Cheng Márquez Reviewed and Electronically Signed By: Cheng Márquez Signed Date: 02/28/2025 00:24 ET Workstation ID: [id number] Transcribed By: Self Edit Transcribed Date: 02/28/2025 00:23 ET us Clyde Diaz MD CV VASCULAR PROCEDURES Final Result * Creatine kinase (02/27/2025 11:31 PM EDT) Total CK 140 22 - 269 unit/L LAB CHEMISTRY METHOD 02/28/2025 12:[address] [facility] Blood Venous blood specimen / Unknown Venipuncture / Unknown 02/27/2025 11:31 PM EDT 02/27/2025 11:47 PM EDT us Clyde Diaz MD LAB BLOOD ORDERABLES Final R esult [facility] [address] [place] [address], from Last [address] Insurance [place] [address] [place] [address] GENERIC Advance Directives Documents on File Type Date Recorded Patient Informatica Developer Expl [facility] Health Care Decision (hx) 01/23/2024 HE [facility] PROX[facility] Care Teams Varnish Thinner Relationship Specialty Start Date End Date Leno Lambert MD [address] PCP - General Internal Medicine 03/12/25
--- OUTSIDE RECORDS SUMMARY | 2025-05-12 13:25 | XMS_ITS | Clinical Summary ---
Author Organization [facility] Address [address] [facility] [address] [place] [id number] Phone Care Team Providers Care Handbag Finisher Name Role Phone Leno Lambert MD Primary Care Provid er Allergies No known active allergies Medications docusate sodium (COLACE) 100 MG capsule Take 1 capsule (100 mg total) by mouth 2 (two) times a day. 06/24/20 Active pantoprazole (PROTONIX) 40 MG tablet Take 1 tablet (40 mg total) by mouth daily. 06/25/20 Active lidocaine 4 % Place 1 patch onto the skin daily. 06/24/20 Active acetaminophen (TYLENOL) 325 mg tablet Take 2 tablets (650 mg total) by mouth every 8 (eight) hours. 06/24/20 Active ondansetron (ZOFRAN-ODT) 4 MG disintegrating tablet Take 1 tablet (4 mg total) by mouth every 8 (eight) hours as needed. 06/24/20 Active senna (SENOKOT) 8.6 mg tablet Take 2 tablets by mouth every morning. 06/25/20 Active lidocaine (UROJET) 2 % JelP jelly Apply 5 mL topically 4 (four) times a day as needed (pain at urethra). 06/24/20 Active polysaccharide iron complex (NIFEREX) 150 mg iron capsule Take 1 capsule (150 mg total) by mouth daily with dinner. 06/24/20 Active melatonin 10 mg Tab Take 1 tablet (10 mg total) by mouth nightly at bedtime. 06/24/20 Active traZODone (DESYREL) 50 MG tablet Take 1 tablet (50 mg total) by mouth nightly at bedtime. 06/24/20 Active mirabegron (MYRBETRIQ) 50 mg Tb24 Take 1 tablet (50 mg total) by mouth daily. 06/25/20 Active nystatin (NYSTOP) powder Apply topically 2 (two) times a day as needed. 15 g 06/24/20 Active tetrahydrozoline (VISINE) 0.05 % ophthalmic solution Place 1 drop into each eye 3 (three) times a day as needed (Eye irritation). 15 mL 06/24/20 Active silodosin (RAPAFLO) 4 mg Cap Take 1 capsule (4 mg total) by mouth daily. 06/24/20 Active diclofenac sodium (VOLTAREN) 1 % Gel Apply 4 g topically 4 (four) times a day. 06/24/20 Active bethanechol (URECHOLINE) 25 MG tablet Take 1 tablet (25 mg total) by mouth 2 (two) times a day. 06/25/20 Active docusate sodium-benzocaine (ENEMEEZ PLUS) 283-20 mg/[address] 1 enema (5 mL total) rectally every evening. May also place 1 enema (5 mL total) daily as needed for other (free text field) (bowel training). 06/24/20 Active tiZANidine (ZANAFLEX) 2 MG tablet Take 1 tablet (2 mg total) by mouth every 8 (eight) hours as needed. 06/24/20 Active tiZANidine (ZANAFLEX) 4 MG tablet Take 2 tablets (8 mg total) by mouth every morning AND 2 tablets (8 mg total) daily before lunch AND 2 tablets (8 mg total) every evening AND 2 tablets (8 mg total) nightly at bedtime. 06/24/20 Active capsaicin (ZOSTRIX) 0.025 % cream Apply topically 3 (three) times a day. 06/24/20 Active simethicone (MYLICON) 80 mg chewable tablet Take 1 tablet (80 mg total) by mouth 4 (four) times a day. 06/24/20 Active psyllium (METAMUCIL) 3.4 gram packet Take 1 packet by mouth daily. 06/25/20 Active polyethylene glycol (MIRALAX) 17 gram packet Take 17 g by mouth every evening. 06/24/20 Active midodrine (PROAMATINE) 5 MG tablet Take 1 tablet (5 mg total) by mouth 2 (two) times a day. 06/25/20 Active bisacodyl (DULCOLAX) [address] 1 suppository (10 mg total) rectally daily as needed. 06/24/20 Active multivitamin per tablet Take 1 tablet by mouth daily with dinner. 06/24/20 Active baclofen (LIORESAL) 20 MG tablet Take 1 tablet (20 mg total) by mouth every morning AND 1 tablet (20 mg total) daily before lunch AND 1 tablet (20 mg total) daily with dinner AND 1 tablet (20 mg total) nightly at bedtime. 06/24/20 Active diazePAM (VALIUM) 5 MG tablet Take 1 tablet (5 mg total) by mouth 2 (two) times a day. 60 tablet 06/24/20 Active Active Problems Problem Noted Date Diagnosed Date Quadriplegia, C1-C4 incomplete 02/08/2024 Immunizations Immunization Administration Dates Next Due COVID-19 Pfizer Comirnaty Vaccine (Deferred: Not Available From [employer]) INFLUENZA, SPLIT VIRUS, TRIVALENT PF 06/24/2024( Deferred: Patient Refused) Social History Tobacco Use Types Packs/Day Years [...] high school, GED, job training, learning the Mongolian language, technical skills, or developing parenting skills)? [...] enough money to get more. Never True 11/05/202 4 Residential Stability Answer Date Recor ded What is your housing situation today? I have humphrey escoto 05/07/2024 How many times have you move [...] as food, clothing, or medical care? No 08/17/2024 In the past 12 months have y ou been in a relationship with a person who hurts, threatens, or tries to control you? No 08/17/2024 Are you denied basic needs s uch as food, clothing, or medical care? No 08/17/2024 In the past 12 months have y ou been in a relationship with a person who hurts, threatens, or tries to control you? No 08/17/2024 Comments Unknown Sex and Gender Information Value Date Recorded Sex Assigned at Female 08/20/2024 5:27 AM EST Legal Sex Female 8:47 AM EDT Gender Identity Female 08/20/2024 5:27 AM EST Sexual Orientation Straight 08/20/2024 5: 27 AM EST Last Filed Vital Signs Vital Sign Reading Time Taken Comments Blood Pressure 126/90 08/18/2024 8:30 AM EST Pulse 80 08/18/2024 5:30 AM EST Temperature 36.7 C (98.1 F) 08/18/2024 8:30 AM EST Respiratory Rate 17 08/18/2024 1:51 AM EST Oxygen Saturation 99% 08/18/2024 8:30 AM EST Inhaled Oxygen Concentration - - Weight 79.4 kg (175 lb) 08/17/2024 9:12 PM EST Height 154.9 cm (5' 1 ) 08/17/2024 9:12 PM EST Body Mass Index 33.07 08/17/2024 9:12 PM EST Plan of Treatment Health Maintenance Due Date Last Done Comments BLOOD PRESSURE 1964 LIPID PANEL 1964 DEPRESSION SCREENING 1976 SMOKING Hx and SMOKELESS TOBACCO SCREENING 1977 HEPATITIS C SCREENING 1982 HIV ONE-TIME SCREENING (18-65 YEARS) 1982 PAP SMEAR 1985 COLOGUARD 2009 COLONOSCOPY 2009 COLORECTAL CANCER SCREENING 2009 FIT TEST 2009 FOBT 2009 SIGMOIDOSCOPY 2009 VIRTUAL COLONOSCOPY 2009 PNEUMOCOCCAL VACCINES (50+ years) (1 of 1 - PCV) 2014 INFLUENZA VACCINE (#1) 2025 3, 04/22/2022, 04/10/2021, Additional history exists COVID-19 VACCINE (3 - season) 2025 10/17/2020, 09/26/2020 MAMMOGRAM 12/26/2025 12/27/2023 SCREENING FOR DIABETES 09/18/2027 09/17/2024 Adult Td,Tdap Booster 03/13/2028 03/13/2018 , 05/23/2013, 02/26/2008 RSV VACCINE (1 - 1-dose 75+ series) 09/20/2039 ZOSTER VACCINES Completed 08/14/2020, 05/11/2020 HEPATITIS A VACCINES Aged Out No long er eligible based on patient's age to complete this topic HIB VACCINES Aged Out No longer eligi ble based on patient's age to complete this topic MENINGOCOCCAL VACCINES (ACWY) Aged Out No longer eligible based on patient's age to complete this topic MENINGOCOCCAL VACCINES (B) Aged Out N o longer eligible based on patient's age to complete this topic Medical Devices Not on file Additional Health Concerns Infection Onset Date 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 05/23/2024 Insurance [employer]ATION Advance Directives For more information, please contact: [phone] (9AM - 5PM [facility], Monday-Monday) Documents on File Type Date Recorded Patient Director Of Social Work Expl anation Healthcare Proxy 02/08/2024 COMPLETED H CP * Full Code (Latest Code Status on File) Date Activated Date Inactivated Comments 02/08/2024 1:42 PM Question Answer Comments Code Status Confirmed With: Patient Care Teams Handbag Finisher Relationship Specialty Start Date End Date Leno Lambert MD [address] [phone] PCP - General Pediatrics 01/24/24 Additional Source Comments The information contained in this document represents components of the legal health record. It is not the complete legal health record[facility]
--- OUTSIDE RECORDS SUMMARY | 2025-05-12 13:25 | XMS_ITS | Encounter Summary ---
Author Organization [facility] Address [address] [place] [address] Phone Care Team Providers Care Practice Management Consultant Name Role Phone Leno Lambert MD Primary Care Provid er Encounter Details Date Type Department Care Team (Late st Contact Info) Description 02/26/2024 Procedure Pass [facility] [address] [facility], 2nd Floor, [address] [place] [address] Social History Tobacco Use Types Packs/Day Years [...] high school, GED, job training, learning the Sinhala language, technical skills, or developing parenting skills)? No 02/08/2024 Are you concerned about learning? Not on file 02/08/2024 No 02/08/2024 Yes 02/08/2024 Food Answer Date Recorded Within the past 6 months we worried whether our food would run out before we got money to buy more. Never True 02/08/2024 Within the past 6 months the food we bought just didn't last and we didn't have enough money to get more. Never True Residential Stability Answer Date Recor ded What is your housing situation today? I have humphrey sing 02/08/2024 How many times have you move d in the past 12 months? Zero (I did not move) 02/08/2024 Paying for Meds Answer Date Recorded Do you have trouble paying for medicines? No 02/08/2024 Paying Utility Bills Answer Date Record ed Do you have trouble paying your heating or elect ricity bill? No 02/08/2024 Transportation Answer Date Recorded Has the lack of transportati on kept you from medical appointments or from getting medications? No 02/08/2024 Digital Access Answer Date Recorded No 02/08/2024 Yes 02/08/2024 Do you have reliable internet access at home? Ye s 02/08/2024 Do you have a device (e.g., phone, tablet, computer) with a working camera? Yes 02/08/2024 Intimate Partner Violence Answer Date R ecorded [...] documented as of this encounter Care Teams Practice Management Consultant Relationship Specialty Start Date End Date Leno Lambert MD [address] [phone] PCP - General Pediatrics 01/24/24 documented as of this encounter Additional Source Comments The information contained in this document represents components of the legal health record. It is not the complete legal health record.[facility]
== END 2025-05-12 12:21 | disposition home or self-care (01) ==
LOC: HO.HSM 11:04
PROVIDERS: PCP Internal Medicine; Visit Provider Nurse Practitioner
DX: S14.109A Unspecified injury at unspecified level of cervical spinal cord, initial encounter (principal); R53.1 Weakness; R20.0 Anesthesia of skin; G82.50 Quadriplegia, unspecified; M54.50 Low back pain, unspecified
CPT/HCPCS: 99204